=== PATIENT | female | born 1985 | race Caucasian/White ===

== ENCOUNTER 2016-09-25 21:35 | Inpatient (IN) | payer MEDICAID ==
[~2016-09-25] VITALS: Ht 147.3 cm; Wt 59.5 kg
[2016-09-25 22:00] VITALS: BP 110/62; PULSE 90
[2016-09-25 22:43] VITALS: BP 116/63; PULSE 74; TEMP 97.3
[2016-09-25 23:14] LABS: BASO % 0.2 % (0.0-2.0); EOS % 0.4 % (0-4.0); GRAN # 7.4 (1.4-6.5); GRAN % 68.9 % (42.2-75.2); HEMOGLOBIN 12.6 g/dl (12.5-16.0); LYMPH # 2.5 (1.2-3.4); LYMPH % 23.1 % (20.0-51.0); MEAN CELL VOLUME 90 fl (80.0-100.0); MEAN CORPUSCULAR HEMOGLOBIN 31 pg (27.0-31.0); MEAN CORPUSCULAR HGB CONC 34 g/dl (33.0-37.0); MEAN PLATELET VOLUME 11.4 fl (7.4-10.4); MONO # 0.8 (0.1-0.6); PLATELET COUNT 354 K/mm3 (130-400); RED BLOOD COUNT 4.05 M/mm3 (4.10-5.30); REDCELL DISTRIBUTION WIDTH-CV 12.9 % (11.5-14.5); WHITE BLOOD COUNT 10.7 K/mm3 (4.8-10.8)
[2016-09-25 23:39] LABS: HEMATOCRIT 36.6 % (37.0-47.0)
[2016-09-25 23:45] VITALS: BP 114/64; PULSE 77; TEMP 97.3
[2016-09-26] VITALS (12 sets, daily range): BP systolic 95–125; BP diastolic 48–85; PULSE 62–75; TEMP 97.5–98.6
[2016-09-27 07:55] VITALS: BP 104/50; PULSE 64; TEMP 98.2
[2016-09-27] MEDS ORDERED: PERCOCET 325 MG1 TA2 PO (08:14)
[2016-09-27] MEDS ORDERED: MOTRIN 800800 MG/TAB PO (08:14)
[2016-09-27 16:00] VITALS: BP 97/51; PULSE 68; TEMP 98.1
[2016-09-27 20:10] VITALS: BP 100/56; PULSE 73; TEMP 97.8
== END 2016-09-27 21:40 | disposition home or self-care (01) | DRG 775 ==
LOC: LDRO 21:35 → LDR 22:01 → OB 22:01
PROVIDERS: Obstetrics & Gynecology
PROC: 10E0XZZ Delivery of Products of Conception, External Approach (ICD-10-PCS; principal; 2016-09-25)
DX: O60.14X0 Preterm labor third trimester with preterm delivery third trimester, not applicable or unspecified (principal); Z3A.35 35 weeks gestation of pregnancy; Z37.0 Single live birth; Z87.51 Personal history of pre-term labor
CPT/HCPCS: J2590; J7120